=== PATIENT | female | born 1935 | race Caucasian/White ===

== ENCOUNTER 2017-10-22 08:17 | Inpatient (IN) ==
--- NOTE | 2017-10-22 08:40 | Emergency Department Note ---
Disposition Clinical Impression: Dyspnea on exertion, Elevated troponin Pneumonia Qualifiers: Pneumonia type: due to unspecified organism Laterality: unspecified laterality Lung location: unspecified part of lung Qualified Code(s): J18.9 - Pneumonia, unspecified organism CHF exacerbation Qualifiers: Congestive heart failure type: unspecified congestive heart failure type Qualified Code(s): I50.9 - Heart failure, unspecified Disposition: Admitted As Inpatient Condition: Good Time of Disposition: 12:00 SOB HPI - General Chief Complaint: ED Shortness of Breath/Dyspnea Stated Complaint: ASHLEY Time Seen by Provider: 10/22/17 08:18 Source: patient, family Limitations: no limitations Nursing Notes Reviewed: Yes Vital Signs Reviewed: Yes - History of Present Illness 82-year-old female history of hypertension presents to the ED with difficulty breathing. This is been ongoing for the past 2 months. She is been trying to get in with her primary care physician Dr. Harrison but unable to. 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 She denies any chest pain associated with it. Denies any recent fevers. She does report a cough that has been ongoing the past 2 months no production. Denies any fevers or chills. She has noticed some ringing in the right ear as well. She did report an episode of a spell worse she felt unbalance and leaned up against the wall and did not fall this occurred about a week ago. She does not take any anticoagulants. Denies history of blood clots, long distance travel, surgery, hospitalization or hormone replacement. Pt Subjective Complaint: shortness of breath, cough - Related Data Home Medications Medication Instructions Recorded Confirmed Citalopram Hydrobromide 40 mg PO DAILY 10/22/17 10/22/17 [Citalopram HBr] Lisinopril-HCTZ 10-12.5 [Prinzide 1 tab PO DAILY 10/22/17 10/22/17 10-12.5] Naproxen [Naproxen] 500 mg PO BID 10/22/17 10/22/17 Allergies Allergy/AdvReac Type Severity Reaction Status Date / Time Penicillins AdvReac Hives Verified 10/22/17 08:23 All systems ED: reviewed and negative except as stated. Review of Systems: As Per HPI Constitutional: Denies: fever, chills ENT ED: Denies: congestion, dysphagia Cardiovascular: Reports: dyspnea on exertion. Denies: chest pain Respiratory: Reports: cough, dyspnea Gastrointestinal: Denies: abdominal pain, nausea, vomiting, hematemesis Genitourinary: Denies: urgency, dysuria Musculoskeletal: Denies: back pain, neck pain Integumentary: Denies: rash, abrasion Neurological: Denies: headache, weakness Psychiatric: Denies: anxiety, depression Endocrine: Denies: fatigue Hematological/Lymphatic: Denies: easy bleeding Past Medical History - Past Medical History Attestation: Yes The following information was validated with the patient. Source: patient, obtained from family Medical history: Reports: hypertension, other Surgical history: Reports: hysterectomy, other Psychiatric history: Reports: anxiety, depression - Social History Smoking Status: Never smoker Smokeless Tobacco Status: No Alcohol use: Reports: none Drug use: Reports: none Physical Exam - General Limitations: no limitations General appearance: alert, in no apparent distress - Head Head exam: atraumatic, normocephalic, normal inspection - Eye Eye exam: Present: normal appearance, PERRL, EOMI - ENT ENT exam: normal exam, normal oropharynx, mucous membranes moist - Neck Neck exam: Present: normal inspection, full ROM, trachea midline - Chest Chest inspection: Present: normal inspection, symmetric chest wall rise - Respiratory Respiratory exam: Present: normal lung sounds bilaterally. Absent: respiratory distress, wheezes - Cardiovascular Cardiovascular exam: Present: regular rate, normal rhythm, normal heart sounds - Abdominal Exam Abdominal exam: Present: soft, Non-Tender. Absent: tenderness, distention, guarding, rebound, rigidity - Extremities Exam Extremities exam: Present: normal inspection, full ROM, normal capillary refill , pedal edema (nonpitting, symmetrical). Absent: tenderness, calf tenderness - Back Exam Back exam: Present: normal inspection, full ROM. Absent: tenderness - Neurological Exam Neurological exam: Present: alert, oriented X3, CN II-XII intact - Psychiatric Psychiatric exam: Present: normal affect, normal mood - Skin Skin exam: Present: warm, dry, intact, normal color. Absent: cyanosis, diaphoresis Course Course Narrative: 82-year-old female former smoker presents with dyspnea on exertion worse over the past 2 months. She has also had a cough and congestion associated with it. Oxygen saturation 96% on room air. She is slightly tachycardic 90s. History of hypertension offer medication for a month, blood pressure elevated 180/90. She denies any chest pain. Lung sounds are clear bilaterally. Some nonpitting edema bilateral lower extremity. Tenderness. No PE or DVT risk factors. Chest pain workup initiated with BNP. EKG shows no acute ischemic changes. She is in agreement with this plan. Disposition pending workup. - Reevaluation(s) Reevaluation #1: Review for labs, troponin elevated 0.12. No prior lab values to compare no prior lab values to compare. She denies history of cardiac ischemic disease. Her BNP is also elevated 300. On chest x-ray there is concern for a right mid lung infiltrate. EKG does not show any acute ischemic changes. At this time a CT of the chest order to evaluate for possible pulmonary embolism as a source of these elevations. It was performed and did not reveal evidence of pulmonary embolism. The findings are suggestive of mild congestive heart failure as well as likely multifocal pneumonia. She has not been hospitalized the last 3 months it will be treated with Levaquin for community acquired pneumonia. She is not septic appearing. Only meets 1 of 4 SIRS with the tachycardia >90. No blood cultures are likely needed. Patient has been given 324 mg aspirin. Impression is elevated troponin, likely CHF exacerbation, pneumonia, dyspnea on exertion. Family and patient are comfortable with admission for further evaluation. Chest X-Ray 10/22/17 08:33 IMPRESSION: *There is a right mid lung infiltrate, along the minor fissure, concerning for pneumonia. Follow-up radiographs in 4-6 weeks are recommended to ensure resolution. *Mild pulmonary vascular congestion, increased. There are associated small bilateral pleural effusions with associated bibasilar atelectasis. D/ / Alexx Bee MD / Alexx Bee MD Interpreting Provider: Alexx Bee MD Chest CTA 10/22/17 09:37 IMPRESSION: 1. No CT evidence of a pulmonary embolism. 2. The constellation of findings is suggestive of mild CHF, including small bilateral pleural effusions and interstitial pulmonary edema. 3. Multifocal airspace opacities most consistent with multifocal pneumonia. There is a 1.8 cm nodular focus of consolidative opacity within the right upper lobe, likely the continuum of multifocal pneumonia. However, appropriate clinical treatment, and short-term chest CT follow-up in 6-8 weeks, to ensure resolution of this opacity. 4. Mild mediastinal lymphadenopathy is most likely benign and reactive in etiology. However, this should also be followed to ensure resolution or stability. 5. Suspected chronic pulmonary arterial hypertension. D/ / 10/22/2017 11:14:01 Claude Beasley MD / [facility] Interpreting Provider: Claude Beasley MD Time: 10:00 - Consultations Consultation #1: Spoke with on-call hospitalist melissa Lauren to admit for elevated troponin, CHF exacerbation, CAP. No further orders at this time Vital Signs Temperature 97.9 F 10/22/17 08:19 Pulse Rate 93 10/22/17 08:19 Respiratory Rate 18 10/22/17 08:19 Blood Pressure 180/95 10/22/17 08:19 O2 Sat by Pulse Oximetry 96 10/22/17 08:19 Temperature 97.9 F 10/22/17 08:19 Pulse Rate 84 10/22/17 11:30 Respiratory Rate 16 10/22/17 11:30 Blood Pressure 161/93 10/22/17 11:30 O2 Sat by Pulse Oximetry 96 10/22/17 11:30 Oxygen Delivery Oxygen Delivery Room Air Shortness of Breath/Dyspnea - MDM Narrative Medical decision making narrative: Patient was discussed with my attending physician who agrees with ED management and final disposition. They independently evaluated the patient. Please refer to their attestation to this encounter for additional information. This note was generated by [employer] voice recognition software and as a result grammatical or spelling errors may occur using this program. - Medical Records Medical records reviewed: Yes I reviewed the patient's medical records. - Lab Data Lab results reviewed: Yes I reviewed the patient's lab results. Result diagrams: 10/22/17 08:44 10/22/17 08:44 Lab Results 10/22/17 10/22/17 10/22/17 Range/Units 08:44 08:44 08:44 WBC 7.5 (4.3-11.1) K/mcL RBC 4.61 (3.82-4.97) M/mcL Hgb 13.0 (11.5-15.4) g/dL Hct 40.2 (35.3-44.9) % MCV 87.2 (83.0-100.0) fL MCH 28.2 (28.0-33.3) pg MCHC 32.3 (31.6-35.5) g/dL RDW 13.5 (11.5-14.5) % Plt Count 265 (140-400) K/mcL MPV 10.1 (9.4-12.4) fL Immature Gran % 0.3 (0-4) % Seg Neutrophils % 78.4 % Lymphocytes % 12.4 % Monocytes % 6.8 % Eosinophils % 1.6 % Basophils % 0.5 % Neutrophils # 5.9 (1.6-8.9) K/mcL Lymphocytes # 0.9 (0.6-4.6) K/mcL Monocytes # 0.5 (0.0-1.3) K/mcL Eosinophils # 0.1 (0.0-0.6) K/mcL Basophils # 0.0 (0.0-0.2) K/mcL Sodium 140 (136-145) mEq/L Potassium 3.8 (3.5-4.5) mEq/L Chloride 105 (98-109) mEq/L Carbon Dioxide 24 (19-29) mEq/L BUN 24 H (7-20) mg/dL Creatinine 0.84 (0.57-1.11) mg/dL Est GFR ( Amer) > 60 (> 60) Est GFR (Non-Af Amer) > 60 (> 60) BUN/Creatinine Ratio 29 H (6-26) Glucose 113 H (70-99) mg/dL Calculated Osmolality 295 (280-300) Calcium 10.0 (8.6-10.8) mg/dL Troponin I 0.12 H* (0-0.03) ng/mL B-Natriuretic Peptide (0-100) pg/mL 10/22/17 Range/Units 08:44 WBC (4.3-11.1) K/mcL RBC (3.82-4.97) M/mcL Hgb (11.5-15.4) g/dL Hct (35.3-44.9) % MCV (83.0-100.0) fL MCH (28.0-33.3) pg MCHC (31.6-35.5) g/dL RDW (11.5-14.5) % Plt Count (140-400) K/mcL MPV (9.4-12.4) fL Immature Gran % (0-4) % Seg Neutrophils % % Lymphocytes % % Monocytes % % Eosinophils % % Basophils % % Neutrophils # (1.6-8.9) K/mcL Lymphocytes # (0.6-4.6) K/mcL Monocytes # (0.0-1.3) K/mcL Eosinophils # (0.0-0.6) K/mcL Basophils # (0.0-0.2) K/mcL Sodium (136-145) mEq/L Potassium (3.5-4.5) mEq/L Chloride (98-109) mEq/L Carbon Dioxide (19-29) mEq/L BUN (7-20) mg/dL Creatinine (0.57-1.11) mg/dL Est GFR ( Amer) (> 60) Est GFR (Non-Af Amer) (> 60) BUN/Creatinine Ratio (6-26) Glucose (70-99) mg/dL Calculated Osmolality (280-300) Calcium (8.6-10.8) mg/dL Troponin I (0-0.03) ng/mL B-Natriuretic Peptide 319 H (0-100) pg/mL - Radiology Data Radiology results reviewed: Yes I reviewed the patient's radiology results. Chest X-Ray 10/22/17 08:33 IMPRESSION: *There is a right mid lung infiltrate, along the minor fissure, concerning for pneumonia. Follow-up radiographs in 4-6 weeks are recommended to ensure resolution. *Mild pulmonary vascular congestion, increased. There are associated small bilateral pleural effusions with associated bibasilar atelectasis. D/ / Alexx Bee MD / Alexx Bee MD Interpreting Provider: Alexx Bee MD Chest CTA 10/22/17 09:37 IMPRESSION: 1. No CT evidence of a pulmonary embolism. 2. The constellation of findings is suggestive of mild CHF, including small bilateral pleural effusions and interstitial pulmonary edema. 3. Multifocal airspace opacities most consistent with multifocal pneumonia. There is a 1.8 cm nodular focus of consolidative opacity within the right upper lobe, likely the continuum of multifocal pneumonia. However, appropriate clinical treatment, and short-term chest CT follow-up in 6-8 weeks, to ensure resolution of this opacity. 4. Mild mediastinal lymphadenopathy is most likely benign and reactive in etiology. However, this should also be followed to ensure resolution or stability. 5. Suspected chronic pulmonary arterial hypertension. D/ / 10/22/2017 11:14:01 Claude Beasley MD / [facility] Interpreting Provider: Claued Beasley MD - EKG Data EKG attestation: Yes I reviewed and interpreted this EKG. EKG results narrative: EKG performed 0831 normal sinus rhythm with a PAC 89 beats per minute, normal axis, good R wave progression, no ST elevations or depression, some nonspecific T wave flattening the appears chronic from old EKG performed 02/08/2014. No acute ischemic changes. Attestation Statement - Attestation Attestation: I, Pritesh Lester DO, examined this patient [id number] and my medical decision-making was reviewed with Josafat Patterson DO , Resident Physician. I agree with the documented findings, disposition and treatment plan as described except to the extent set forth below. Please see my progress notes for details. 82-year-old female presenting to the emergency room for evaluation of increased work of breathing and shortness of breath with exertion over the last 2 months. Patient does not typically go to the doctor. She does take medications for hypertension. She denies any new medications at this time. She does describe not taking her home medications over the last month. Patient denies any significant chest pain shortness of breath headaches vision changes nausea vomiting or diarrhea. Denies any fevers or chills or recent illnesses or trauma. Her main complaint is simply exertional shortness of breath. She does not have any history of pulmonary emboli or cardiac disease. Patient physical exam is resting comfortably in the bed she does not show any acute signs or conversational dyspnea. Her vital signs are stable. Detailed evaluation be completed with EKG chest x-ray labs including BMP, CBC, chemistry, troponin. Patient will also be provided breathing treatments. Chest x-ray did show a right-sided pulmonary infiltrate. There is concern for possible influenza pneumonia based on the patient's symptoms history and story. Because of this we will discuss possible admission. Influenza swab sent at this time. Patient' s family informed that comfortable with this plan. Otherwise no other acute issues noted during treatment course. Patient has clear lungs on examination heart the jugular abdomen is soft nontender nondistended no guarding or rigidity and no peritoneal symptoms. She has no acute signs of pitting edema or difficulty with ambulation or signs of ataxia. Please see detailed documentation of the physical exam, medical intervention, medical decision- making and disposition and the resident physician's note [id number] Patient found to have bilateral airspace disease consistent with congestive heart failure and multifocal pneumonia. No CT imaging findings concerning for pulmonary emboli. Patient will be admitted for symptomatic shortness of breath elevated troponin and BNP. Antibiotics including Levaquin and blood cultures along with aspirin given here in the emergency room. Hospitalist paged at this time for admission
[2017-10-22 08:57] LABS: Basophils % 0.5 %; Eosinophils # 0.1 K/mcL (0.0-0.6); Eosinophils % 1.6 %; Hematocrit 40.2 % (35.3-44.9); Immature Granulocytes % 0.3 % (0-4); Lymphocytes # 0.9 K/mcL (0.6-4.6); Lymphocytes % 12.4 %; Mean Corpuscular HGB Conc 32.3 g/dL (31.6-35.5); Mean Corpuscular Hemoglobin 28.2 pg (28.0-33.3); Mean Corpuscular Volume 87.2 fL (83.0-100.0); Mean Platelet Volume 10.1 fL (9.4-12.4); Monocytes # 0.5 K/mcL (0.0-1.3); Monocytes % 6.8 %; Neutrophils # 5.9 K/mcL (1.6-8.9); Platelet Count 265 K/mcL (140-400); Red Blood Count 4.61 M/mcL (3.82-4.97); Red Cell Distribution Width 13.5 % (11.5-14.5); Segmented Neutrophils % 78.4 %
[2017-10-22 09:11] LABS: BUN/Creatinine Ratio 29 (6-26); Blood Urea Nitrogen 24 mg/dL (7-20); Carbon Dioxide 24 mEq/L (19-29); Chloride 105 mEq/L (98-109); Glucose 113 mg/dL (70-99); Osmolality,Calculated 295 (280-300); Potassium 3.8 mEq/L (3.5-4.5); Sodium 140 mEq/L (136-145); eGFR For African Americans > 60 (> 60); eGFR For Non-African Americans > 60 (> 60)
[2017-10-22] MEDS ORDERED: 0.9 % Sodium Chloride 500 ML IVC ONE (09:38)
[2017-10-22] MEDS ORDERED: Aspirin 81 MG TAB.CHEW PO STA (09:39)
[2017-10-22] MEDS ORDERED: Levofloxacin 750 MG/150 ML 750 MG/150 ML BAG IVPB ONE (11:19)
[2017-10-22] MEDS ORDERED: Acetaminophen 325 MG TABLET PO PRN (12:03)
[2017-10-22] MEDS ORDERED: Naloxone 0.4 MG/ML INJ IVP PRN (12:03)
--- NOTE | 2017-10-22 12:17 | Internal Med History&Physical ---
Date of Encounter: 10/22/17 Time of Encounter: 12:15 Assessment and Plan (1) Pneumonia Current visit: Yes Status: Acute oxygen supplement, antibiotics (Azithro 500mg IV daily and Cefth. 1 g IV daily, DVT prophylaxis, incentive spirometry Qualifiers: Pneumonia type: due to unspecified organism Laterality: unspecified laterality Lung location: unspecified part of lung Qualified Code(s): J18.9 - Pneumonia, unspecified organism (2) Elevated troponin Current visit: Yes Status: Acute initial troponin level is 0.12. will trend for two more times. May consult cardiology based on results. Internal Medicine - H&P: HPI Chief complaint: Shortness of breath Admitted From: Home Plans for Post Hospital Care: Home History of present illness: Ms. Olguin is a 82 year old female Ms. Cherri Olguin is [id number] female with medical history that includes hypertension and depression .she came in with chief complaint of increased shortness of breath which has been ongoing for about 2 months .she was unable to have an appointment to see her primary care physician she did nothing to make it better or worse at home .she described the shortness of breath. occurring more whenever she ambulates .she denies headache abdominal pain dizziness nausea or vomiting Past Med Surg Social Fam HX - Past Medical History Medical history: hypertension, other Psychiatric history: anxiety, depression - Past Surgical History Surgical History: hysterectomy, other - Social History Smoking Status: Never smoker Smokeless Tobacco Status: No Alcohol use: none Drug use: none Internal Medicine - H&P: Meds Citalopram Hydrobromide [Citalopram HBr] 40 mg PO DAILY 10/22/17 [History] Lisinopril-HCTZ 10-12.5 [Prinzide 10-12.5] 1 tab PO DAILY 10/22/17 [History] Naproxen [Naproxen] 500 mg PO BID 10/22/17 [History] 3 Allergy/AdvReac Type Severity Reaction Status Date / Time Penicillins AdvReac Hives Verified 10/22/17 08:23 All Systems PM: A 10-system review of systems was performed and is negative for pertinent findings except as documented above in the HPI. - Constitutional Constitutional: no chills, no fever(s), no night sweats - EENT Eyes: no change in vision, no discharge, no pain, no photophobia Ears: no ear discharge, no ear pain, no tinnitus Nose, mouth and throat: no dysphagia, no nasal discharge, no neck pain, no sore throat - Cardiovascular Cardiovascular ROS IM: dyspnea, dyspnea on exertion, no chest pain, no diaphoresis, no lightheadedness, no palpitations, no syncope - Respiratory Respiratory: cough, dyspnea, wheezing, no excessive phlegm production - Gastrointestinal Gastrointestinal: no abdominal pain, no diarrhea, no hematemesis, no hematochezia, no melena, no nausea, no vomiting - Genitourinary Genitourinary: no change in urinary stream, no dysuria, no flank pain, no hematuria - Musculoskeletal Musculoskeletal ROS IM: no numbness, no tingling - Integumentary Integumentary IM: no rash, no unusual bruising - Neurological Neurological ROS: no confusion, no convulsions, no focal weakness, no numbness, no tingling, no tremor(s) - Hematologic/Lymphatic Hematologic/Lymphatic: no easy bruising - Constitutional Vitals: Temp Pulse Resp BP Pulse Ox 97.9 F 84 16 161/93 96 10/22/17 08:19 10/22/17 11:30 10/22/17 11:30 10/22/17 11:30 10/22/17 11:30 General appearance: Present: cooperative, A&O X 3, pleasant - Head Head exam: Present: atraumatic, normocephalic - Eye Eye exam: Present: PERRL, conjuntiva pink, sclera anicteric Pupils: Present: PERRL - Neck Neck exam general surgery: Present: supple, trachea midline. Absent: lymphadenopathy - Respiratory Respiratory exam: Present: decreased breath sounds, CTAB, wheezes. Absent: accessory muscle use, rales, rhonchi - Cardiovascular Cardiovascular exam: Present: RRR, +S1, +S2. Absent: diastolic murmur, gallop, rubs, systolic murmur - GI/Abdominal GI/Abdominal exam: Present: normal bowel sounds, soft, no peritoneal signs. Absent: distended, tenderness - Extremities Exam Extremities exam: Present: normal capillary refill, warm, radial pulses palpable and symmetrical. Absent: calf tenderness, cyanotic, pedal edema - Neurological Exam Neurological exam: Present: alert, CN II-XII intact, oriented X3, no focal deficits. Absent: pronater drift, facial droop, speech deficit - Skin Skin exam: Present: dry, intact, warm Internal Med - H&P Results - Labs CBC & Chem 7: 10/22/17 08:44 10/22/17 08:44 Labs: Short CBC 10/22/17 Range/Units 08:44 WBC 7.5 (4.3-11.1) K/mcL Hgb 13.0 (11.5-15.4) g/dL Hct 40.2 (35.3-44.9) % Plt Count 265 (140-400) K/mcL Neutrophils # 5.9 (1.6-8.9) K/mcL BMP 10/22/17 08:44 Sodium 140 Potassium 3.8 Chloride 105 Carbon Dioxide 24 BUN 24 H Creatinine 0.84 Glucose 113 H Calcium 10.0 Cardiac Enzymes 10/22/17 Range/Units 08:44 Troponin I 0.12 H* (0-0.03) ng/mL - Impressions ITS Impressions Chest X-Ray 10/22/17 08:33 IMPRESSION: *There is a right mid lung infiltrate, along the minor fissure, concerning for pneumonia. Follow-up radiographs in 4-6 weeks are recommended to ensure resolution. *Mild pulmonary vascular congestion, increased. There are associated small bilateral pleural effusions with associated bibasilar atelectasis. D/ / Alexx Bee MD / Alexx Bee MD Interpreting Provider: Alexx Bee MD Chest CTA 10/22/17 09:37 IMPRESSION: 1. No CT evidence of a pulmonary embolism. 2. The constellation of findings is suggestive of mild CHF, including small bilateral pleural effusions and interstitial pulmonary edema. 3. Multifocal airspace opacities most consistent with multifocal pneumonia. There is a 1.8 cm nodular focus of consolidative opacity within the right upper lobe, likely the continuum of multifocal pneumonia. However, appropriate clinical treatment, and short-term chest CT follow-up in 6-8 weeks, to ensure resolution of this opacity. 4. Mild mediastinal lymphadenopathy is most likely benign and reactive in etiology. However, this should also be followed to ensure resolution or stability. 5. Suspected chronic pulmonary arterial hypertension. D/ / 10/22/2017 11:14:01 Claude Beasley MD / [facility] Interpreting Provider: Claude Beasley MD - Attending Attestation Nikki Rubio
[2017-10-22] MEDS ORDERED: Azithromycin 500 MG in D5% in Water 250 ML IVPB SCH (13:00)
[2017-10-22] MEDS ORDERED: *HR* Labetalol 20 MG/4 ML SYRINGE IVP PRN (13:35)
--- NOTE | 2017-10-22 16:53 | Electrocardiograph Report ---
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
[2017-10-23 01:38] LABS: Hematocrit 35.1 % (35.3-44.9); Hemoglobin 11.5 g/dL (11.5-15.4); Mean Corpuscular HGB Conc 32.8 g/dL (31.6-35.5); Mean Corpuscular Hemoglobin 28.8 pg (28.0-33.3); Mean Corpuscular Volume 87.8 fL (83.0-100.0); Mean Platelet Volume 10.3 fL (9.4-12.4); Platelet Count 245 K/mcL (140-400); Red Cell Distribution Width 13.5 % (11.5-14.5)
[2017-10-23 01:53] LABS: BUN/Creatinine Ratio 30 (6-26); Blood Urea Nitrogen 32 mg/dL (7-20); Calcium 9.6 mg/dL (8.6-10.8); Carbon Dioxide 23 mEq/L (19-29); Chloride 109 mEq/L (98-109); Chol/HDL Ratio 2.9 (0-4.9); Cholesterol 160 mg/dL (< 200); Glucose 104 mg/dL (70-99); HDL Cholesterol 55 mg/dL (40-59); LDL Cholesterol,Calculated 94 mg/dL (0-99); Osmolality,Calculated 297 (280-300); Potassium 3.8 mEq/L (3.5-4.5); Sodium 140 mEq/L (136-145); Triglycerides 54 mg/dL (< 150); eGFR For African Americans > 60 (> 60); eGFR For Non-African Americans 50 (> 60)
[2017-10-23] MEDS: Melatonin 3 MG TABLET PO PRN ×2 (02:25→23:37)
[2017-10-23] MEDS ORDERED: Perflutren Lipid Microsphere 1.3 ML in 0.9 % Sodium Chloride 8.7 ML IVP ONE (07:51)
[2017-10-23] MEDS ORDERED: Levofloxacin 750 MG/150 ML 750 MG/150 ML BAG IVPB SCH (11:00)
--- NOTE | 2017-10-23 11:16 | Internal Med Progress Note ---
Date of Encounter: 10/23/17 Time of Encounter: 11:11 - Assessment and plan (1) Pneumonia Current Visit: Yes Status: Acute Assessment and plan: Community-acquired pneumonia, unknown agent Continue Levaquin IV Sent a nasal swab to test for influenza which was negative Blood cultures CT scan of the chest showed:1. No CT evidence of a pulmonary embolism. 2. The constellation of findings is suggestive of mild CHF, including small bilateral pleural effusions and interstitial pulmonary edema. 3. Multifocal airspace opacities most consistent with multifocal pneumonia. There is a 1.8 cm nodular focus of consolidative opacity within the right upper lobe, likely the continuum of multifocal pneumonia. However, appropriate clinical treatment, and short-term chest CT follow-up in 6-8 weeks, to ensure resolution of this opacity. 4. Mild mediastinal lymphadenopathy is most likely benign and reactive in etiology. However, this should also be followed to ensure resolution or stability. 5. Suspected chronic pulmonary arterial hypertension. Qualifiers: Pneumonia type: due to unspecified organism Laterality: unspecified laterality Lung location: unspecified part of lung Qualified Code(s): J18.9 - Pneumonia, unspecified organism (2) Elevated troponin Current Visit: Yes Status: Acute Assessment and plan: Elevated troponins likely secondary to demand ischemia Echocardiogram pending, consider calling cardiology if there are any wall motion abnormalities Start aspirin (3) CHF exacerbation Current Visit: Yes Status: Acute Assessment and plan: Acute Pulmonary edema possibly related to pneumonia, possible diastolic CHF exacerbation Echocardiogram report pending Start low dose of Lasix Qualifiers: Congestive heart failure type: diastolic Qualified Code(s): I50.33 - Acute on chronic diastolic (congestive) heart failure (4) Anxiety Current Visit: Yes Status: Acute - Subjective Interval history: Denies any chest pain, feels less short of breath, coughing, no fevers, no abdominal pain, no dysuria - Constitutional Vitals: Temp Pulse Resp BP Pulse Ox 98.6 F 87 16 119/74 95 10/23/17 11:01 10/23/17 11:01 10/23/17 11:01 10/23/17 11:01 10/23/17 11:01 General appearance: Present: cooperative, A&O X 3, pleasant - Head Head exam: Present: atraumatic, normocephalic - Eye Eye exam: Present: PERRL, conjuntiva pink, sclera anicteric Pupils: Present: PERRL - Neck Neck exam general surgery: Present: supple, trachea midline. Absent: lymphadenopathy - Respiratory Respiratory exam: Present: decreased breath sounds, CTAB. Absent: accessory muscle use, rales, rhonchi, wheezes - Cardiovascular Cardiovascular exam: Present: RRR, +S1, +S2. Absent: diastolic murmur, gallop, rubs, systolic murmur - GI/Abdominal GI/Abdominal exam: Present: normal bowel sounds, soft, no peritoneal signs. Absent: distended, tenderness - Extremities Exam Extremities exam: Present: warm, radial pulses palpable and symmetrical. Absent : calf tenderness, cyanotic, pedal edema - Neurological Exam Neurological exam: Present: CN II-XII intact, oriented X3, no focal deficits. Absent: pronater drift, facial droop, speech deficit - Skin Skin exam: Present: dry, intact Internal Medicine: Result - Labs CBC & Chem 7: 10/23/17 00:31 10/23/17 00:31 Labs: Short CBC 10/23/17 Range/Units 00:31 WBC 7.3 (4.3-11.1) K/mcL Hgb 11.5 D (11.5-15.4) g/dL Hct 35.1 L (35.3-44.9) % Plt Count 245 (140-400) K/mcL [facility] 10/23/17 00:31 Sodium 140 Potassium 3.8 Chloride 109 Carbon Dioxide 23 BUN 32 H Creatinine 1.05 Glucose 104 H Calcium 9.6 Cardiac Enzymes 10/22/17 10/22/17 10/23/17 Range/Units 12:50 17:41 00:31 Troponin I 0.17 H* 0.18 H* 0.14 H* (0-0.03) ng/mL Consult Discharge Plan - Plan Referrals: Oliver Harrison MD [Primary Care Provider] -
[2017-10-23] MEDS ORDERED: Furosemide 20 MG TABLET PO PRN (11:19)
[2017-10-23] MEDS: Aspirin Enteric Coated 81 MG Tablet PO SCH (16:58)
[2017-10-24] MEDS: Aspirin Enteric Coated 81 MG Tablet PO SCH (10:24)
[2017-10-24] MEDS ORDERED: Levofloxacin 750 MG/150 ML 750 MG/150 ML BAG IVPB SCH (11:00)
[2017-10-24 11:11] VITALS: BP 137/75
[2017-10-24] MEDS ORDERED: levoFLOXacin 750 MG TABLET PO ONE (11:12)
--- NOTE | 2017-10-24 12:53 | Discharge Summary ---
Date of Encounter: 10/24/17 Time of Encounter: 12:49 - Discharge Diagnosis (1) Pneumonia Priority: Primary Status: Acute Comments: Community-acquired pneumonia, unknown agent Qualifiers: Pneumonia type: due to unspecified organism Laterality: unspecified laterality Lung location: unspecified part of lung Qualified Code(s): J18.9 - Pneumonia, unspecified organism (2) Elevated troponin Priority: Primary Status: Acute Comments: Secondary to demand ischemia (3) CHF exacerbation Priority: Primary Status: Acute Comments: Diastolic CHF exacerbation with an ejection fraction of 55% and moderate diastolic dysfunction, no wall motion abnormalities Qualifiers: Congestive heart failure type: diastolic Qualified Code(s): I50.33 - Acute on chronic diastolic (congestive) heart failure (4) Anxiety Priority: Secondary Status: Acute - Discharge Medications Prescriptions: Furosemide [Lasix] 20 mg PO DAILY #30 tablet Levofloxacin [Levaquin] 750 mg PO DAILY #5 tablet Lisinopril [Zestril] 5 mg PO DAILY #30 tablet Home Medications: Citalopram Hydrobromide [Citalopram HBr] 40 mg PO DAILY 10/22/17 [History] Naproxen 500 mg PO BID 10/22/17 [History] Furosemide [Lasix] 20 mg PO DAILY #30 tablet 10/24/17 [Rx] Levofloxacin [Levaquin] 750 mg PO DAILY #5 tablet 10/24/17 [Rx] Lisinopril [Zestril] 5 mg PO DAILY #30 tablet 10/24/17 [Rx] Allergies/Adverse Reactions: 3 Allergy/AdvReac Type Severity Reaction Status Date / Time Penicillins AdvReac Hives Verified 10/22/17 08:23 Procedures/tests Complete & Pending: Procedures Performed prior 72 hours Category Date Time Status EV echocardiogram w enhance Stat Y 10/22/17 13:13 Completed Date of admission: 10/22/17 12:31 Primary care physician: Oliver Harrison MD - Patient Status Disposition: Home, Self-Care Condition: Good Overall status at discharge: patient is progressing back to baseline - Discharge Instructions Follow Up With: Oliver Harrison MD [Primary Care Provider] - Additional Instructions: Follow-up with primary care physician within the next 7 days. Recommended to follow-up with the pulmonary service within the next 4 weeks in order to have pulmonary function tests and another CT scan of the chest to evaluate a nodular opacity in the right upper loas described above. Lisinopril and hydrochlorothiazide were stopped, the patient will be discharged on 5 mg of lisinopril and 20 g of Lasix daily. She needs to complete 5 more days of Levaquin. - Diet and Activity Diet: low fat, low cholesterol Hospital course: Ms. Olguin is a 82 year old female with medical history that includes hypertension and depression, came in with chief complaint of increased shortness of breath which has been ongoing for about 2 months, close to a year . She was unable to have an appointment to see her primary care physician she did nothing to make it better or worse at home. She described the shortness of breath occurring more whenever she ambulates, denied headache abdominal pain CT scan of the chest showed no pulmonary emboli and showed multifocal opacities especially at 1.8 cm nodular focus in the right upper lobe. The patient was started on Levaquin, was started on Lasix. An echocardiogram showed an ejection fraction of 55% and moderate diastolic dysfunction with no wall motion abnormalities. Her troponins increased up to 0.18 and then decreased to 0.14, never complained of chest pain. The patient prefers to be discharged at the moment. Was diagnosed with Acute Pulmonary edema possibly related to pneumonia and diastolic CHF exacerbation. Follow-up with primary care physician within the next 7 days. Recommended to follow-up with the pulmonary service within the next 4 weeks in order to have pulmonary function tests and another CT scan of the chest to evaluate a nodular opacity in the right upper loas described above. Lisinopril and hydrochlorothiazide were stopped, the patient will be discharged on 5 mg of lisinopril and 20 g of Lasix daily. She needs to complete 5 more days of Levaquin CT scan of the chest showed:1. No CT evidence of a pulmonary embolism. 2. The constellation of findings is suggestive of mild CHF, including small bilateral pleural effusions and interstitial pulmonary edema. 3. Multifocal airspace opacities most consistent with multifocal pneumonia. There is a 1.8 cm nodular focus of consolidative opacity within the right upper lobe, likely the continuum of multifocal pneumonia. However, appropriate clinical treatment, and short-term chest CT follow-up in 6-8 weeks, to ensure resolution of this opacity. 4. Mild mediastinal lymphadenopathy is most likely benign and reactive in etiology. However, this should also be followed to ensure resolution or stability. 5. Suspected chronic pulmonary arterial hypertensio - Time Spent with Patient Total time spent providing and/or coordinating discharge services: Greater than 30 minutes (40 min) - Constitutional Vitals: Temp Pulse Resp BP Pulse Ox 97.5 F L 81 16 137/75 96 10/24/17 11:09 10/24/17 11:09 10/24/17 11:09 10/24/17 11:09 10/24/17 11:09 General appearance: Present: cooperative, A&O X 3, pleasant - Head Head exam: Present: atraumatic, normocephalic - Eye Eye exam: Present: PERRL, conjuntiva pink, sclera anicteric Pupils: Present: PERRL - Neck Neck exam general surgery: Present: supple, trachea midline. Absent: lymphadenopathy - Respiratory Respiratory exam: Present: CTAB. Absent: accessory muscle use, rales, rhonchi, wheezes - Cardiovascular Cardiovascular exam: Present: RRR, +S1, +S2. Absent: diastolic murmur, gallop, rubs, systolic murmur - GI/Abdominal GI/Abdominal exam: Present: normal bowel sounds, soft, no peritoneal signs. Absent: distended, tenderness - Extremities Exam Extremities exam: Present: warm, radial pulses palpable and symmetrical. Absent : calf tenderness, cyanotic, pedal edema - Neurological Exam Neurological exam: Present: CN II-XII intact, oriented X3, no focal deficits. Absent: pronater drift, facial droop, speech deficit - Skin Skin exam: Present: dry, intact
--- NOTE | 2017-10-24 13:01 | Physician Discharge Referral ---
Home Health/Hosp Referral Info Transfer to: Home Health Provider in Charge Post Discharge: PCP - Diagnosis (1) Pneumonia Status: Acute (2) Elevated troponin Status: Acute (3) CHF exacerbation Status: Acute (4) Anxiety Status: Acute - Respiratory Orders Smoking Cessation: Smoking cessation has been advised. For more information, call the [place] Tobacco Quit Line at 3-922-XNSQ-NOW. - Diet/Nutrition Diet/Nutrition Orders: No Added Salt (JOSH) - Services Needed Home Care Orders: Follow-up with primary care physician within the next 7 days. Recommended to follow-up with the pulmonary service within the next 4 weeks in order to have pulmonary function tests and another CT scan of the chest to evaluate a nodular opacity in the right upper loas described above. Lisinopril and hydrochlorothiazide were stopped, the patient will be discharged on 5 mg of lisinopril and 20 g of Lasix daily. She needs to complete 5 more days of Levaqui - Transfer Medications Prescriptions: Furosemide [Lasix] 20 mg PO DAILY #30 tablet Levofloxacin [Levaquin] 750 mg PO DAILY #5 tablet Lisinopril [Zestril] 5 mg PO DAILY #30 tablet Home Medications: Citalopram Hydrobromide [Citalopram HBr] 40 mg PO DAILY 10/22/17 [History] Naproxen 500 mg PO BID 10/22/17 [History] Furosemide [Lasix] 20 mg PO DAILY #30 tablet 10/24/17 [Rx] Levofloxacin [Levaquin] 750 mg PO DAILY #5 tablet 10/24/17 [Rx] Lisinopril [Zestril] 5 mg PO DAILY #30 tablet 10/24/17 [Rx] Allergies/Adverse Reactions: 3 Allergy/AdvReac Type Severity Reaction Status Date / Time Penicillins AdvReac Hives Verified 10/22/17 08:23 Certification: Further, I certify that my clinical findings support that this patient is homebound (i.e. absences from home require considerable and taxing effort and are for medical reasons or [facility] services or infrequently or short duration when for other reasons) because: Homebound Reason: Patient requires assistance of a person or device to safely leave home Attestation: My signature below is to certify that this patient is under my care and that I, or nurse practitioner, or a physician's chef assistant working with me, has a face-to -face encounter with this patient.
== END 2017-10-24 14:50 | disposition home or self-care (01) | DRG 193 ==
LOC: EMEROO 08:17 → 2ANU 08:17
PROVIDERS: ADMIT Internal Medicine; ATTEND Internal Medicine

== ENCOUNTER 2020-10-28 16:41 | Inpatient (IN) ==
[2020-10-28] MEDS ORDERED: *HR* FentaNYL (PF) 100 MCG/2 ML VIAL IVP ONE (16:51)
[2020-10-28] MEDS ORDERED: Ondansetron 4 MG/2 ML VIAL IVP ONE (16:51)
[2020-10-28 17:33] LABS: Hematocrit 39.3 % (35.3-44.9); Hemoglobin 12.1 g/dL (11.5-15.4); Mean Corpuscular HGB Conc 30.8 g/dL (31.6-35.5); Mean Corpuscular Hemoglobin 27.8 pg (28.0-33.3); Mean Corpuscular Volume 90.1 fL (83.0-100.0); Mean Platelet Volume 10.5 fL (9.4-12.4); Platelet Count 180 K/mcL (140-400); Red Blood Count 4.36 M/mcL (3.82-4.97); Red Cell Distribution Width 14.9 % (11.5-14.5); White Blood Count 6.2 K/mcL (4.3-11.1)
[2020-10-28 17:34] LABS: Basophils % 0.6 %; Eosinophils # 0.1 K/mcL (0.0-0.6); Eosinophils % 2.3 %; Immature Granulocytes % 0.5 % (0-4); Lymphocytes # 1.2 K/mcL (0.6-4.6); Lymphocytes % 18.5 %; Monocytes # 0.5 K/mcL (0.0-1.3); Monocytes % 8.1 %; Neutrophils # 4.3 K/mcL (1.6-8.9)
[2020-10-28 17:49] LABS: Albumin 3.6 g/dL (3.5-5.7); Albumin/Globulin Ratio 1.4 (1.1-2.2); Bilirubin,Direct 0.3 mg/dL (0.0-0.2); Bilirubin,Indirect 0.4 mg/dL (0.0-1.0); Bilirubin,Total 0.7 mg/dL (0.3-1.0); Globulin 2.5 g/dL (2.4-3.5); Total Protein 6.1 g/dL (6.4-8.9)
[2020-10-28 17:51] LABS: BUN/Creatinine Ratio 31 (6-26); Blood Urea Nitrogen 29 mg/dL (8-23); Calcium 9.8 mg/dL (8.6-10.3); Carbon Dioxide 25 mEq/L (23-29); Chloride 105 mEq/L (98-107); Glucose 110 mg/dL (70-105); Osmolality,Calculated 292 (280-300); Potassium 3.9 mEq/L (3.5-5.1); Sodium 138 mEq/L (136-145); eGFR For African Americans > 60 (> 60); eGFR For Non-African Americans 56 (> 60)
[2020-10-28 17:55] LABS: Troponin I 0.06 ng/mL (< 0.04)
[2020-10-28 18:08] LABS: Amorphous Sediment,Urine Few per hpf (None-Few); Bacteria,Urine Few per hpf (None-Few); Bilirubin,Urine Negative (Negative); Blood,Urine Negative (Negative); Clarity,Urine Clear (Clear); Color,Urine Yellow (Yellow); Glucose,Urine (UA) Normal (Normal); Ketones,Urine Negative (Negative); Leukocyte Esterase,Urine Negative (Negative); Mucus,Urine Few per lpf (None-Few); Nitrite,Urine Negative (Negative); PH,Urine 5.5 pH Units (5.0-8.0); Protein,Urine 50 mg/dL (Neg-Trace); RBC,Urine 0-3 per hpf (0-3); Specific Gravity,Urine 1.023 (1.010-1.025); WBC,Urine 0-3 per hpf (0-3)
[2020-10-28] MEDS ORDERED: Furosemide 40 MG/4 ML VIAL IVP ONE (18:24)
[2020-10-28] MEDS: 0.9 % Sodium Chloride 1,000 ML IVC SCH (19:25)
[2020-10-28] MEDS ORDERED: Ondansetron 4 MG/2 ML VIAL IVP PRN (19:31)
[2020-10-28] MEDS ORDERED: Naloxone 0.4 MG/ML INJ IVP PRN (19:31)
[2020-10-28] MEDS: Aspirin 325 MG TABLET PO SCH (23:42)
[2020-10-29] MEDS: 0.9 % Sodium Chloride 1,000 ML IVC SCH (02:51)
[2020-10-29 03:19] LABS: Hematocrit 40.8 % (35.3-44.9); Hemoglobin 12.7 g/dL (11.5-15.4); Mean Corpuscular HGB Conc 31.1 g/dL (31.6-35.5); Mean Corpuscular Volume 90.1 fL (83.0-100.0); Mean Platelet Volume 10.7 fL (9.4-12.4); Platelet Count 199 K/mcL (140-400); Red Blood Count 4.53 M/mcL (3.82-4.97); White Blood Count 6.2 K/mcL (4.3-11.1)
[2020-10-29] MEDS ORDERED: Perflutren Lipid Microsphere 1.3 ML in 0.9 % Sodium Chloride 8.7 ML IVP PRN (06:19)
[2020-10-29 08:22] LABS: Troponin I 0.07 ng/mL (< 0.04)
[2020-10-29] MEDS: Aspirin 325 MG TABLET PO SCH (08:42)
[2020-10-29] MEDS: Sacubitril/Valsartan 24/26 MG 1 TABLET PO SCH ×2 (08:42→20:14)
[2020-10-29] MEDS: Furosemide 20 MG/2 ML VIAL IVP SCH ×2 (08:43→20:14)
[2020-10-29] MEDS: FLUoxetine HCl 10 MG CAPSULE PO SCH ×2 (08:54→17:02)
[2020-10-29] MEDS ORDERED: Metoprolol XL (24 HR) Succ 25 MG TAB.ER.24H PO SCH (09:00)
[2020-10-29 10:41] LABS: BUN/Creatinine Ratio 29 (6-26); Blood Urea Nitrogen 30 mg/dL (8-23); Calcium 9.8 mg/dL (8.6-10.3); Carbon Dioxide 24 mEq/L (23-29); Chloride 105 mEq/L (98-107); Glucose 118 mg/dL (70-105); Magnesium 1.8 mg/dL (1.6-2.6); Osmolality,Calculated 295 (280-300); Phosphorous 3.7 mg/dL (2.7-4.5); Potassium 3.8 mEq/L (3.5-5.1); Sodium 139 mEq/L (136-145); eGFR For African Americans > 60 (> 60); eGFR For Non-African Americans 50 (> 60)
[2020-10-29] MEDS: Isosorbide MONOnitrate (24 HR) 30 MG TAB.ER.24H PO SCH (11:31)
[2020-10-29] MEDS ORDERED: Ipratropium/Albuterol Neb 3 ML IH PRN (15:04)
[2020-10-29] MEDS ORDERED: *HR* Rivaroxaban 10 MG TABLET PO SCH (17:00)
[2020-10-29] MEDS ORDERED: *HR* Rivaroxaban 15 MG TABLET PO SCH (17:00)
[2020-10-29] MEDS: Metoprolol XL (24 HR) Succ 25 MG TAB.ER.24H PO SCH (20:13)
[2020-10-30 05:59] LABS: Hematocrit 38.3 % (35.3-44.9); Hemoglobin 12.1 g/dL (11.5-15.4); Mean Corpuscular HGB Conc 31.6 g/dL (31.6-35.5); Mean Corpuscular Hemoglobin 28.3 pg (28.0-33.3); Mean Corpuscular Volume 89.5 fL (83.0-100.0); Platelet Count 164 K/mcL (140-400); Red Blood Count 4.28 M/mcL (3.82-4.97); White Blood Count 6.1 K/mcL (4.3-11.1)
[2020-10-30] MEDS: FLUoxetine HCl 10 MG CAPSULE PO SCH (08:06)
[2020-10-30] MEDS: Sacubitril/Valsartan 24/26 MG 1 TABLET PO SCH (08:07)
[2020-10-30] MEDS: Metoprolol XL (24 HR) Succ 25 MG TAB.ER.24H PO SCH (08:07)
[2020-10-30] MEDS: Isosorbide MONOnitrate (24 HR) 30 MG TAB.ER.24H PO SCH (08:07)
[2020-10-30] MEDS: Furosemide 20 MG/2 ML VIAL IVP SCH (08:07)
[2020-10-30 08:20] LABS: Calcium 9.6 mg/dL (8.6-10.3); Magnesium 1.7 mg/dL (1.6-2.6); Phosphorous 3.3 mg/dL (2.7-4.5); Potassium 3.4 mEq/L (3.5-5.1)
[2020-10-30] MEDS ORDERED: Aspirin Enteric Coated 81 MG Tablet PO SCH (09:00)
[2020-10-30 11:38] VITALS: BP 135/99
== END 2020-10-30 15:54 | disposition home health service (06) | DRG 281 ==
LOC: 2ANU 16:41 → EMEROOARM 16:41 → SUATTDRO 19:49 → 2ANU 21:41
PROVIDERS: ADMIT Internal Medicine; ATTEND Internal Medicine